=== PATIENT | female | born 1960 | race Caucasian/White ===

== ENCOUNTER 2017-07-23 13:08 | Day surgery (SDC) | payer OTHER ==
[2017-07-23] MEDS ORDERED: PROPOFOL 20 ML ×2 (13:58→14:48)
== END 2017-07-23 16:06 | disposition home or self-care (01) ==
LOC: GIL 13:08
DX: Z12.11 Encounter for screening for malignant neoplasm of colon (principal); K64.8 Other hemorrhoids; E66.9 Obesity, unspecified; Z68.32 Body mass index [BMI] 32.0-32.9, adult
CPT/HCPCS: 45378

== ENCOUNTER 2018-01-28 16:44 | Emergency (ER) | payer OTHER ==
[2018-01-28] MEDS: KETOROLAC 60 MG INJ IM (17:24)
== END 2018-01-28 19:49 | disposition home or self-care (01) ==
LOC: FTE 16:44
DX: S90.31XA Contusion of right foot, initial encounter (principal); S39.92XA Unspecified injury of lower back, initial encounter; S19.9XXA Unspecified injury of neck, initial encounter; W22.8XXA Striking against or struck by other objects, initial encounter; Y92.9 Unspecified place or not applicable
CPT/HCPCS: 72040; 72100; 73630; 96372; 99284-25